=== PATIENT | female | born 1945 | race African-American/Black ===

== ENCOUNTER 2017-01-24 22:10 | Emergency (ER) | payer OTHER ==
[~2017-01-24] VITALS: Ht 167.6 cm; Wt 97.0 kg
[~2017-01-24 22:10] MED LIST: AMIT25TA9 PO; DIPH25CA83 PO; HYDR25TA PO; MONT10TA24 PO; POTA20TA82 PO; TRAM50TA3 PO
[2017-01-25] MEDS ORDERED: KETOROLAC 30MG/ML VIAL IV STA (07:13)
[2017-01-25 07:40] LABS: BASOPHILS % 0.7 % (0.0-2.0); EOSINOPHILS % 1.9 % (0.0-5.0); HEMATOCRIT. 36.1 % (36.0-48.0); HEMOGLOBIN. 11.8 g/dL (12.0-16.0); LYMPHOCYTES % 28.7 % (20.0-50.0); MEAN CORPUSCULAR HGB CONC 32.8 g/dL (31.0-37.0); MEAN CORPUSCULAR VOLUME 88.4 fL (81.0-99.0); MEAN PLATELET VOLUME 9.7 fl (7.4-10.4); NEUTROPHILS % 60.7 % (40.0-76.0); PLATELET 163 x1000/uL (130-400); RED BLOOD CELL COUNT 4.08 mill/uL (4.2-5.4); RED CELL DISTRIBUTION WIDTH 13.5 % (11.6-14.6)
[2017-01-25 07:46] LABS: PROTHROMBIN TIME 10.6 sec
[2017-01-25 07:56] LABS: ALANINE AMINOTRANSFERASE 24 IU/L (13-61); ALBUMIN 3.1 g/dL (3.4-5.0); ANION GAP 8; CALCIUM 8.9 mg/dL (8.5-10.1); CARBON DIOXIDE 30 mEq/L (21-32); CHLORIDE 108 mEq/L (98-107); INDEX HEMOLYSI 1 (1-3); INDEX ICTERIC 1 (1-4); INDEX LIPEMIC 1 (1-3); LIPASE 104 IU/L (73-393); UREA NITROGEN BLOOD 13 mg/dL (7-21); eGFR > 60 mL/min (>60)
[2017-01-25 10:06] LABS: CLARITY URINE CLOUDY (CLEAR); COLOR URINE YELLOW (YELLOW); GLUCOSE URINE NEGATIVE (NEGATIVE); KETONES URINE NEGATIVE (NEGATIVE); LEUKOCYTE ESTERASE URINE TRACE (NEGATIVE); NITRITE URINE NEGATIVE (NEGATIVE); OCCULT BLOOD URINE NEGATIVE (NEGATIVE); PH URINE 8.5 (4.5-8.0); PROTEIN URINE NEGATIVE (NEGATIVE); SPECIFIC GRAVITY URINE 1.011 (1.005-1.030); UROBILINOGEN URINE 0.2 E.U./dL (0.2-1.0)
[2017-01-25 10:41] LABS: MUCUS URINE TRACE /lpf (< = 2+); SQUAMOUS EPITHELIAL CELL URINE 1+ /lpf (RARE/1+)
[2017-01-25 10:42] LABS: AMORPHOUS SEDIMENT URINE 1+ /lpf
[2017-01-25 10:43] LABS: BACTERIA URINE TRACE; RBC URINE 0-2 /hpf (0-2); WBC URINE 0-2 /hpf (0-2)
[2017-01-25 10:44] LABS: YEAST URINE RARE
[2017-01-25 11:00] VITALS: BP 115/57
== END 2017-01-25 11:19 | disposition home or self-care (01) ==
LOC: ER 22:11
DX: R10.31 Right lower quadrant pain (principal); K21.9 Gastro-esophageal reflux disease without esophagitis; I10 Essential (primary) hypertension; Z88.5 Allergy status to narcotic agent; Z88.8 Allergy status to other drugs, medicaments and biological substances; Z79.899 Other long term (current) drug therapy; Z90.710 Acquired absence of both cervix and uterus; Z98.51 Tubal ligation status
CPT/HCPCS: 36415; 80053; 81001; 83690; 85025; 85610; 96374; 99284; J1885

== ENCOUNTER 2017-02-23 18:20 | Emergency (ER) | payer OTHER ==
[~2017-02-23] VITALS: Ht 167.6 cm; Wt 102.0 kg
[2017-02-23] MEDS ORDERED: ONDANSETRON 4MG ODT PO ONE (23:15)
[2017-02-23] MEDS ORDERED: KETOROLAC 30MG/ML VIAL IM ONE (23:15)
[2017-02-23 23:23] LABS: CLARITY URINE CLEAR (CLEAR); COLOR URINE YELLOW (YELLOW); GLUCOSE URINE NEGATIVE (NEGATIVE); KETONES URINE TRACE (NEGATIVE); LEUKOCYTE ESTERASE URINE 1+ (NEGATIVE); NITRITE URINE NEGATIVE (NEGATIVE); OCCULT BLOOD URINE NEGATIVE (NEGATIVE); PROTEIN URINE NEGATIVE (NEGATIVE); SPECIFIC GRAVITY URINE 1.021 (1.005-1.030)
[2017-02-23 23:39] LABS: BASOPHILS % 0.6 % (0.0-2.0); EOSINOPHILS % 1.9 % (0.0-5.0); HEMATOCRIT. 38.3 % (36.0-48.0); HEMOGLOBIN. 12.8 g/dL (12.0-16.0); LYMPHOCYTES % 25.7 % (20.0-50.0); MEAN CORPUSCULAR HEMOGLOBIN 29.3 pg (28.0-32.0); MEAN PLATELET VOLUME 9.5 fl (7.4-10.4); MONOCYTES % 10.2 % (2.0-8.0); NEUTROPHILS % 61.6 % (40.0-76.0); PLATELET 233 x1000/uL (130-400); RED BLOOD CELL COUNT 4.36 mill/uL (4.2-5.4); RED CELL DISTRIBUTION WIDTH 13.2 % (11.6-14.6)
[2017-02-23 23:45] LABS: CHLORIDE 100 mEq/L (98-107)
[2017-02-23 23:49] LABS: PROTHROMBIN TIME 10.6 sec
[2017-02-24 00:02] LABS: CARBON DIOXIDE 28 mEq/L (21-32)
[2017-02-24 00:15] VITALS: BP 120/58
== END 2017-02-24 02:55 | disposition home or self-care (01) ==
LOC: ER 18:20
DX: R10.9 Unspecified abdominal pain (principal); I10 Essential (primary) hypertension; E05.00 Thyrotoxicosis with diffuse goiter without thyrotoxic crisis or storm; C73 Malignant neoplasm of thyroid gland; Z88.1 Allergy status to other antibiotic agents; Z88.5 Allergy status to narcotic agent; Z88.8 Allergy status to other drugs, medicaments and biological substances
CPT/HCPCS: 36415; 74000; 80053; 81001; 83690; 84443; 85025; 85610; 96372; 99285; J1885; Q0162

== ENCOUNTER 2017-05-12 09:58 | Inpatient (IN) | payer OTHER ==
[~2017-05-12] VITALS: Ht 170.2 cm; Wt 85.3 kg
[~2017-05-12 09:58] MED LIST changes: +IOHEXOL-350 100 ML BOTTLE ONE; +SODIUM CHLORIDE 0.9% 10ML VIAL ONE
[2017-05-12] MEDS ORDERED: MAGNESIUM/ALUMINUM HYDROXIDE/SIMETHICONE 30ML UDC PO STA (10:34)
[2017-05-12] MEDS ORDERED: SODIUM CHLORIDE 0.9% 500 ML IV ONE (10:34)
[2017-05-12] MEDS ORDERED: PANTOPRAZOLE SODIUM 40 MG/VIAL IV STA (10:34)
[2017-05-12] MEDS ORDERED: FAMOTIDINE 20MG/2ML VIAL IV STA (10:34)
[2017-05-12 11:11] LABS: HEMATOCRIT. 38.1 % (36.0-48.0); HEMOGLOBIN. 12.2 g/dL (12.0-16.0); MEAN CORPUSCULAR VOLUME 87.2 fL (81.0-99.0); MEAN PLATELET VOLUME 9.4 fl (7.4-10.4); PLATELET 225 x1000/uL (130-400); RED BLOOD CELL COUNT 4.37 mill/uL (4.2-5.4); RED CELL DISTRIBUTION WIDTH 13.8 % (11.6-14.6)
[2017-05-12 11:17] LABS: INR 1.2; PROTHROMBIN TIME 12.5 sec (9.4-11.6)
[2017-05-12 11:26] LABS: CARBON DIOXIDE 28 mEq/L (21-32); CHLORIDE 99 mEq/L (98-107); TROPONIN I < 0.02 ng/mL (0.00-0.04)
[2017-05-12 12:16] LABS: PLATELET ESTIMATE NORMAL
[2017-05-12 12:50] LABS: CLARITY URINE CLEAR (CLEAR); COLOR URINE ORANGE (YELLOW); GLUCOSE URINE NEGATIVE (NEGATIVE); KETONES URINE TRACE (NEGATIVE); LEUKOCYTE ESTERASE URINE 1+ (NEGATIVE); NITRITE URINE NEGATIVE (NEGATIVE); OCCULT BLOOD URINE NEGATIVE (NEGATIVE); PH URINE 5.5 (4.5-8.0); PROTEIN URINE 1+ (NEGATIVE); SPECIFIC GRAVITY URINE 1.028 (1.005-1.030)
[2017-05-12] MEDS ORDERED: CEFTRIAXONE 1 G PREMIX 50 ML IV ONE (15:15)
[2017-05-12 20:00] VITALS: BP 116/64
[2017-05-12] MEDS ORDERED: ACETAMINOPHEN 325MG TABLET PO PRN (21:45)
[2017-05-12] MEDS ORDERED: ONDANSETRON HCL 4MG/2ML VIAL IV PRN (21:45)
[2017-05-12] MEDS ORDERED: IPRATROPIUM/ALBUTEROL 0.5-3(2.5)MG/3ML NEB INH PRN (21:45)
[2017-05-12] MEDS ORDERED: MORPHINE SULFATE 2 MG/ML CPJ (NOT FOR IM USE) IV PRN (22:15)
[2017-05-12] MEDS ORDERED: POTASSIUM CHLORIDE 10MEQ TABLET SR PO NR (22:30)
[2017-05-12] MEDS: SODIUM CHLORIDE 0.9% 1,000 ML IV SCH (23:24)
[2017-05-12] MEDS: SODIUM CHLORIDE 0.9% INJ 3ML FLUSH IVF SCH (23:24)
[2017-05-13] VITALS: BP 131/59
[2017-05-13] MEDS: PIPERACILLIN/TAZ 3.375G PREMIX 50 ML IV SCH ×4 (00:29→22:18)
[2017-05-13] MEDS: LEVOFLOXACIN 500MG PREMIX 100 ML IV SCH (01:55)
[2017-05-13 04:00] VITALS: BP 100/57
[2017-05-13] MEDS: CEFTRIAXONE 1 G PREMIX 50 ML IV SCH ×2 (05:29→22:18)
[2017-05-13] MEDS: SODIUM CHLORIDE 0.9% INJ 3ML FLUSH IVF SCH ×3 (05:30→22:20)
[2017-05-13] MEDS ORDERED: PANTOPRAZOLE 40MG DR TABLET PO SCH (07:20)
[2017-05-13 07:26] LABS: HEMATOCRIT. 32.4 % (36.0-48.0); HEMOGLOBIN. 10.7 g/dL (12.0-16.0); MEAN CORPUSCULAR HEMOGLOBIN 28.5 pg (28.0-32.0); MEAN CORPUSCULAR VOLUME 86.6 fL (81.0-99.0); MEAN PLATELET VOLUME 10.2 fl (7.4-10.4); PLATELET 182 x1000/uL (130-400); RED BLOOD CELL COUNT 3.74 mill/uL (4.2-5.4); RED CELL DISTRIBUTION WIDTH 14.1 % (11.6-14.6)
[2017-05-13 08:00] VITALS: BP 116/68
[2017-05-13 08:45] LABS: CARBON DIOXIDE 26 mEq/L (21-32); CHLORIDE 99 mEq/L (98-107)
[2017-05-13] MEDS: FAMOTIDINE 20MG TABLET PO SCH ×2 (08:59→22:19)
[2017-05-13] MEDS: MONTELUKAST SODIUM 10MG TABLET PO SCH (08:59)
[2017-05-13] MEDS: ENOXAPARIN 40MG/0.4ML SYR SUBCUT SCH (08:59)
[2017-05-13] MEDS ORDERED: ENOXAPARIN 40MG/0.4ML SYR SUBCUT SCH (09:00)
[2017-05-13 12:00] VITALS: BP 120/73
[2017-05-13 13:58] LABS: PLATELET ESTIMATE NORMAL
[2017-05-13 16:00] VITALS: BP 123/66
[2017-05-13] MEDS ORDERED: DIPHENHYDRAMINE 25MG CAPSULE PO SCH (17:00)
[2017-05-13] MEDS ORDERED: AMITRIPTYLINE 25MG TABLET PO SCH (17:00)
[2017-05-13 20:00] VITALS: BP 130/88
[2017-05-13] MEDS: AMITRIPTYLINE 25MG TABLET PO SCH (22:18)
[2017-05-13] MEDS: DIPHENHYDRAMINE 25MG CAPSULE PO SCH (22:19)
[2017-05-13] MEDS: SODIUM CHLORIDE 0.9% 1,000 ML IV SCH (22:30)
[2017-05-14] VITALS (12 sets, daily range): BP systolic 107–139; BP diastolic 60–88
[2017-05-14] MEDS: PIPERACILLIN/TAZ 3.375G PREMIX 50 ML IV SCH ×4 (03:34→20:32)
[2017-05-14] MEDS: LEVOFLOXACIN 500MG PREMIX 100 ML IV SCH (03:34)
[2017-05-14 06:39] LABS: HEMATOCRIT. 30.9 % (36.0-48.0); HEMOGLOBIN. 10.2 g/dL (12.0-16.0); MEAN CORPUSCULAR HEMOGLOBIN 28.3 pg (28.0-32.0); MEAN CORPUSCULAR VOLUME 85.9 fL (81.0-99.0); MEAN PLATELET VOLUME 10.4 fl (7.4-10.4); PLATELET 198 x1000/uL (130-400); RED CELL DISTRIBUTION WIDTH 14.1 % (11.6-14.6)
[2017-05-14 06:55] LABS: CARBON DIOXIDE 25 mEq/L (21-32); CHLORIDE 104 mEq/L (98-107)
[2017-05-14] MEDS: CEFTRIAXONE 1 G PREMIX 50 ML IV SCH ×2 (06:57→20:32)
[2017-05-14] MEDS: SODIUM CHLORIDE 0.9% INJ 3ML FLUSH IVF SCH ×3 (07:04→23:25)
[2017-05-14] MEDS ORDERED: FENTANYL CITRATE/PF 50MCG/ML 2ML VIAL ONE (08:50)
[2017-05-14] MEDS ORDERED: FENTANYL CITRATE/PF 50MCG/ML 2ML VIAL IV SCH (09:15)
[2017-05-14] MEDS: FAMOTIDINE 20MG TABLET PO SCH ×2 (10:59→20:33)
[2017-05-14] MEDS: MONTELUKAST SODIUM 10MG TABLET PO SCH (10:59)
[2017-05-14] MEDS: ENOXAPARIN 40MG/0.4ML SYR SUBCUT SCH (11:00)
[2017-05-14] MEDS: TRAMADOL 50MG TABLET PO PRN ×2 (11:01→18:01)
[2017-05-14] MEDS ORDERED: SODIUM BICARBONATE 8.4% 1 MEQ/ML 50ML SYR IV ONE (12:00)
[2017-05-14] MEDS ORDERED: LIDOCAINE HCL 1% 20ML VIAL (Pyxis) INJ ONE (12:00)
[2017-05-14 13:04] LABS: HEMATOCRIT 32.5 % (36.0-48.0); HEMOGLOBIN 10.6 g/dL (12.0-16.0)
[2017-05-14] MEDS ORDERED: POTASSIUM CHLORIDE 20MEQ TABLET SR PO SCH (14:00)
[2017-05-14 14:51] LABS: PLATELET ESTIMATE NORMAL
[2017-05-14 15:22] LABS: BG BASE EXCESS 1.7 mmol/L (-2.0-2.0); BG DEOXYHEMOGLOBIN 5.5 % (0.0-5.0); BG FRACTION INSPIRED OXYGEN 21; BG HCO3 ACT 25.9 mmol/L (22.0-26.0); BG METHEMOGLOBIN 0.1 % (0.0-1.5); BG OXYGEN SATURATION 94.5 % (92.0-98.5); BG OXYHEMOGLOBIN 94.4 % (94.0-97.0); BG PCO2 39.5 mmHg (35.0-45.0); BG PH 7.435 (7.350-7.450); BG PO2 72.1 mmHg (75.0-100.0); BG SAMPLE SITE LEFT BRACHIAL; BG TOTAL HEMOGLOBIN 11.7 g/dL (12.0-18.0); BG VENT MODE ROOM AIR
[2017-05-14] MEDS: AMITRIPTYLINE 25MG TABLET PO SCH (17:58)
[2017-05-14] MEDS: DIPHENHYDRAMINE 25MG CAPSULE PO SCH (17:58)
[2017-05-15] VITALS: BP 116/65
[2017-05-15] MEDS: LEVOFLOXACIN 500MG PREMIX 100 ML IV SCH (01:09)
[2017-05-15] MEDS: PIPERACILLIN/TAZ 3.375G PREMIX 50 ML IV SCH ×3 (02:44→12:37)
[2017-05-15 04:00] VITALS: BP 104/65
[2017-05-15] MEDS: SODIUM CHLORIDE 0.9% INJ 3ML FLUSH IVF SCH ×2 (06:26→14:00)
[2017-05-15 08:00] VITALS: BP 132/69
[2017-05-15] MEDS: MONTELUKAST SODIUM 10MG TABLET PO SCH (08:22)
[2017-05-15] MEDS: ENOXAPARIN 40MG/0.4ML SYR SUBCUT SCH (08:22)
[2017-05-15] MEDS: FAMOTIDINE 20MG TABLET PO SCH (08:22)
[2017-05-15] MEDS: CEFTRIAXONE 1 G PREMIX 50 ML IV SCH (08:57)
[2017-05-15 12:00] VITALS: BP 130/76
[2017-05-15] MEDS: TRAMADOL 50MG TABLET PO PRN (13:14)
[2017-05-15 14:56] VITALS: BP 130/76
[2017-05-15 16:00] VITALS: BP 115/67
== END 2017-05-15 16:45 | disposition home or self-care (01) | DRG 872 ==
LOC: ER 09:58 → INTOOBSV 15:34 → OBSVTOIN 15:34 → 6EST 15:34 → ENRESERV 17:57
PROVIDERS: ADMIT Internal Medicine; ATTEND Internal Medicine
PROC: 0FB13ZX Excision of Right Lobe Liver, Percutaneous Approach, Diagnostic (ICD-10-PCS; principal; 2017-05-14)
DX: A41.9 Sepsis, unspecified organism (principal); C78.00 Secondary malignant neoplasm of unspecified lung; C78.7 Secondary malignant neoplasm of liver and intrahepatic bile duct; E44.0 Moderate protein-calorie malnutrition; N39.0 Urinary tract infection, site not specified; I11.9 Hypertensive heart disease without heart failure; K21.9 Gastro-esophageal reflux disease without esophagitis; I25.10 Atherosclerotic heart disease of native coronary artery without angina pectoris; D64.9 Anemia, unspecified; D72.823 Leukemoid reaction; K44.9 Diaphragmatic hernia without obstruction or gangrene; K59.00 Constipation, unspecified; I25.2 Old myocardial infarction; Z85.42 Personal history of malignant neoplasm of other parts of uterus; Z90.710 Acquired absence of both cervix and uterus
CPT/HCPCS: 36415; 36600; 71010; 71275; 74176; 76856; 76942; 80048; 80053; 81001; 82375; 82805; 83690; 83880; 84484; 85014; 85018; 85025; 85610; 88307; 93005; 94640; 96361; 96365; 96366; 96375; 97116; 97162; 99285; A4216; C9113; J0696; J1650; J1956; J2405; J2543; J3010; J3490; J7030; J7040; J7620; Q0163; Q9967

== ENCOUNTER 2017-07-08 07:40 | Inpatient (IN) | payer OTHER ==
[~2017-07-08] VITALS: Ht 165.1 cm; Wt 73.0 kg
[~2017-07-08 07:40] MED LIST changes: -IOHEXOL-350 100 ML BOTTLE ONE; -SODIUM CHLORIDE 0.9% 10ML VIAL ONE
[2017-07-08] MEDS ORDERED: METHYLPREDNISOLONE SOD SUCC 125 MG/2 ML VIAL IV STA (08:00)
[2017-07-08] MEDS ORDERED: IPRATROPIUM BROMIDE (0.02%) 0.5MG/2.5ML NEB HHN STA (08:00)
[2017-07-08] MEDS ORDERED: ALBUTEROL (0.083%) 2.5MG/3ML NEB HHN STA (08:00)
[2017-07-08 08:26] LABS: HEMATOCRIT. 36.9 % (36.0-48.0); HEMOGLOBIN. 12.1 g/dL (12.0-16.0); MEAN CORPUSCULAR HEMOGLOBIN 28.1 pg (28.0-32.0); PLATELET 196 x1000/uL (130-400); RED BLOOD CELL COUNT 4.29 mill/uL (4.2-5.4); RED CELL DISTRIBUTION WIDTH 15.2 % (11.6-14.6)
[2017-07-08 08:34] LABS: INR 1.3; PROTHROMBIN TIME 13.2 sec (9.4-11.6)
[2017-07-08 08:38] LABS: BG BASE EXCESS -1.5 mmol/L (-2.0-2.0); BG CARBOXYHEMOGLOBIN 0.4 % (0.5-1.5); BG DEOXYHEMOGLOBIN 3.3 % (0.0-5.0); BG HCO3 ACT 22.6 mmol/L (22.0-26.0); BG METHEMOGLOBIN 0.2 % (0.0-1.5); BG OXYGEN SATURATION 96.7 % (92.0-98.5); BG OXYHEMOGLOBIN 96.1 % (94.0-97.0); BG PCO2 36.3 mmHg (35.0-45.0); BG PH 7.413 (7.350-7.450); BG PO2 88.3 mmHg (75.0-100.0); BG SAMPLE SITE RIGHT RADIAL; BG TOTAL HEMOGLOBIN 12.2 g/dL (12.0-18.0); BG VENT MODE NASAL CANNULA
[2017-07-08 08:43] LABS: CARBON DIOXIDE 27 mEq/L (21-32); CHLORIDE 100 mEq/L (98-107); TROPONIN I < 0.02 ng/mL (0.00-0.04)
[2017-07-08] MEDS ORDERED: INSULIN REGULAR (HUMULIN R) 300UNITS/3ML IV SCH (09:30)
[2017-07-08] MEDS ORDERED: CALCIUM CHLORIDE 1GM/10ML SYR IV ONE (09:30)
[2017-07-08] MEDS ORDERED: SODIUM BICARBONATE 8.4% 1 MEQ/ML 50ML SYR IV ONE (09:30)
[2017-07-08 10:21] LABS: PLATELET ESTIMATE NORMAL
[2017-07-08] MEDS ORDERED: CALCIUM CHLORIDE 1000 MG in DEXTROSE 5% WATER 100 ML IV NR (11:00)
[2017-07-08] MEDS ORDERED: DEXTROSE 50% WATER 50ML SYRINGE IV NR (11:00)
[2017-07-08] MEDS ORDERED: ALBUTEROL (0.083%) 2.5MG/3ML NEB HHN NR (11:00)
[2017-07-08] MEDS ORDERED: LEVOFLOXACIN 750MG PREMIX 150 ML IV NR (11:00)
[2017-07-08 12:48] VITALS: BP 124/76
[2017-07-08 19:28] VITALS: BP 117/78
[2017-07-08] MEDS ORDERED: ENOXAPARIN 40MG/0.4ML SYR SUBCUT SCH (20:00)
[2017-07-08] MEDS: METOPROLOL TARTRATE 25MG TABLET PO SCH (22:04)
[2017-07-08] MEDS: MORPHINE SULFATE 4 MG/ML CPJ (NOT FOR IM USE) IV PRN (22:06)
[2017-07-08] MEDS ORDERED: ENOXAPARIN 30MG/0.3ML SYR SUBCUT NR (22:30)
[2017-07-08] MEDS ORDERED: ENOXAPARIN 80MG/0.8ML SYR SUBCUT SCH (22:31)
[2017-07-08 23:58] VITALS: BP 129/77
[2017-07-09] MEDS: PIPERACILLIN/TAZ 3.375G PREMIX 50 ML IV SCH ×4 (01:01→17:03)
[2017-07-09] MEDS: IPRATROPIUM/ALBUTEROL 0.5-3(2.5)MG/3ML NEB INH SCH ×7 (01:22→23:37)
[2017-07-09] MEDS: MORPHINE SULFATE 4 MG/ML CPJ (NOT FOR IM USE) IV PRN ×4 (01:42→21:10)
[2017-07-09 04:33] VITALS: BP 123/62
[2017-07-09 06:20] LABS: HEMOGLOBIN. 9.8 g/dL (12.0-16.0); MEAN CORPUSCULAR HEMOGLOBIN 27.6 pg (28.0-32.0); MEAN CORPUSCULAR VOLUME 84.8 fL (81.0-99.0); MEAN PLATELET VOLUME 9.8 fl (7.4-10.4); PLATELET 166 x1000/uL (130-400); RED BLOOD CELL COUNT 3.54 mill/uL (4.2-5.4)
[2017-07-09 07:41] LABS: CARBON DIOXIDE 27 mEq/L (21-32); CHLORIDE 100 mEq/L (98-107)
[2017-07-09 07:49] VITALS: BP 117/63
[2017-07-09] MEDS: ENOXAPARIN 80MG/0.8ML SYR SUBCUT SCH ×2 (08:47→20:21)
[2017-07-09] MEDS: METOPROLOL TARTRATE 25MG TABLET PO SCH ×2 (08:47→20:20)
[2017-07-09] MEDS ORDERED: IPRATROPIUM/ALBUTEROL 0.5-3(2.5)MG/3ML NEB HHN PRN (09:30)
[2017-07-09 12:00] VITALS: BP 114/67
[2017-07-09 15:29] VITALS: BP 105/61
[2017-07-09 20:00] VITALS: BP 129/67
[2017-07-09 21:05] LABS: PLATELET ESTIMATE NORMAL
[2017-07-10 00:42] VITALS: BP 106/66
[2017-07-10] MEDS: PIPERACILLIN/TAZ 3.375G PREMIX 50 ML IV SCH ×3 (00:42→11:56)
[2017-07-10 04:00] VITALS: BP 98/69
[2017-07-10] MEDS: IPRATROPIUM/ALBUTEROL 0.5-3(2.5)MG/3ML NEB INH SCH ×4 (04:16→14:58)
[2017-07-10] MEDS: MORPHINE SULFATE 4 MG/ML CPJ (NOT FOR IM USE) IV PRN (04:39)
[2017-07-10 08:00] VITALS: BP 103/59
[2017-07-10] MEDS: METOPROLOL TARTRATE 25MG TABLET PO SCH (09:00)
[2017-07-10] MEDS: ENOXAPARIN 80MG/0.8ML SYR SUBCUT SCH (09:20)
[2017-07-10 12:00] VITALS: BP 104/64
[2017-07-10 13:15] VITALS: BP 104/61
[2017-07-10 16:09] VITALS: BP 138/68
== END 2017-07-10 16:15 | disposition hospice, home (50) | DRG 180 ==
LOC: ER 07:40 → 6WST 10:36 → ENRESERV 10:54
PROVIDERS: ADMIT Internal Medicine; ATTEND Internal Medicine
DX: C34.90 Malignant neoplasm of unspecified part of unspecified bronchus or lung (principal); I26.99 Other pulmonary embolism without acute cor pulmonale; I82.411 Acute embolism and thrombosis of right femoral vein; I82.431 Acute embolism and thrombosis of right popliteal vein; C78.7 Secondary malignant neoplasm of liver and intrahepatic bile duct; J44.9 Chronic obstructive pulmonary disease, unspecified; K21.9 Gastro-esophageal reflux disease without esophagitis; Z99.81 Dependence on supplemental oxygen; Z51.5 Encounter for palliative care; Z66 Do not resuscitate; I10 Essential (primary) hypertension; I25.10 Atherosclerotic heart disease of native coronary artery without angina pectoris; Z90.710 Acquired absence of both cervix and uterus; Z88.6 Allergy status to analgesic agent; Z88.1 Allergy status to other antibiotic agents; Z88.8 Allergy status to other drugs, medicaments and biological substances; I25.2 Old myocardial infarction
CPT/HCPCS: 36415; 36600; 71010; 78582; 80053; 82375; 82805; 82962; 83605; 83880; 84484; 85025; 85610; 87040; 93005; 93970; 94640; 94664; 96365; 96368; 96375; 99291; A9558; J1650; J1815; J1956; J2270; J2543; J2930; J3490; J7050; J7060; J7620